=== PATIENT | female | born 1990 | race Caucasian/White ===

== ENCOUNTER 2020-05-29 23:04 | Emergency (ER) | payer MEDICAID ==
[~2020-05-29] VITALS: Ht 170.2 cm; Wt 83.0 kg
[2020-05-29 23:14] VITALS: Ht 170.2 cm; Wt 83.0 kg
[2020-05-30 02:10] VITALS: BP 126/78
== END 2020-05-30 02:10 | disposition home or self-care (01) ==
LOC: ED 23:04
DX: T78.1XXA Other adverse food reactions, not elsewhere classified, initial encounter (principal); X58.XXXA Exposure to other specified factors, initial encounter
CPT/HCPCS: J7512; Q0163